=== PATIENT | male | born 1995 | race Two or more races ===

== ENCOUNTER 2019-08-27 02:48 | Emergency (ER) | payer MEDICAID ==
[~2019-08-27] VITALS: Ht 167.6 cm; Wt 81.8 kg
[2019-08-27 02:51] VITALS: BP 116/84
[2019-08-27] MEDS ORDERED: IBUP-1984 PO (03:05)
[2019-08-27] MEDS ORDERED: oxyCODONE SR 10mg (sust. release) tab PO ONE (03:05)
[2019-08-27] MEDS ORDERED: HYDR-3965 PO (03:05)
[2019-08-27] MEDS ORDERED: ketorolac trometh inj. 60 MG/2 ML VIAL IM ONE (03:05)
[2019-08-27] MEDS ORDERED: ondansetron 4mg rapidly disintigrating tab PO ONE (03:05)
== END 2019-08-27 03:14 | disposition home or self-care (01) ==
LOC: ER 02:49
DX: K08.89 Other specified disorders of teeth and supporting structures (principal); Z79.899 Other long term (current) drug therapy
CPT/HCPCS: 96372; 99283; J1885

== ENCOUNTER 2019-09-27 06:48 | Emergency (ER) | payer MEDICAID ==
[~2019-09-27] VITALS: Ht 170.2 cm; Wt 81.0 kg
[~2019-09-27 06:48] MED LIST: HYDR-3965 PO; IBUP-1984 PO
[2019-09-27 06:51] VITALS: BP 133/86
[2019-09-27] MEDS ORDERED: morphine 2 MG/ML inj. syringe IM ONE (07:25)
[2019-09-27] MEDS ORDERED: ketorolac trometh. 30mg/ml inj. IM ONE (07:25)
[2019-09-27] MEDS ORDERED: MELO15TA13 PO (07:28)
[2019-09-27] MEDS ORDERED: CLIN-142 PO (07:28)
== END 2019-09-27 08:17 | disposition home or self-care (01) ==
LOC: ER 06:48
DX: K08.89 Other specified disorders of teeth and supporting structures (principal); R42 Dizziness and giddiness; R11.0 Nausea; K13.79 Other lesions of oral mucosa; Z79.2 Long term (current) use of antibiotics; Z79.899 Other long term (current) drug therapy
CPT/HCPCS: 96372; 99284; J1885; J2270

== ENCOUNTER 2022-08-08 20:59 | Emergency (ER) | payer MEDICAID ==
[~2022-08-08] VITALS: Ht 167.6 cm; Wt 90.9 kg
[~2022-08-08 20:59] MED LIST changes: -HYDR-3965 PO; -IBUP-1984 PO; +MELO15TA13 PO
[2022-08-08] MEDS ORDERED: dexamethasone sod phosphate 10mg/ml inj PO STA (21:44)
[2022-08-08] MEDS ORDERED: albuterol 2.5 MG/3 ML nebule NEB ONE (21:45)
[2022-08-08 21:50] VITALS: BP 139/93
[2022-08-08] MEDS ORDERED: ALBU8HFA PO (22:08)
[2022-08-08] MEDS ORDERED: BECL7.3A INH (22:08)
== END 2022-08-08 22:56 | disposition home or self-care (01) ==
LOC: ER 20:59
DX: J45.909 Unspecified asthma, uncomplicated (principal); Z79.899 Other long term (current) drug therapy
CPT/HCPCS: 94640; 99283; J1100; 94760

== ENCOUNTER 2024-04-12 23:22 | Emergency (ER) | payer MEDICAID ==
[~2024-04-12] VITALS: Ht 170.2 cm; Wt 97.5 kg
[~2024-04-12 23:22] MED LIST changes: +ALBU8HFA PO; +BECL7.3A INH
[2024-04-12 23:23] VITALS: BP 127/92; PULSE 61; RESP 17; TEMP 97.8; O2SAT 97
[2024-04-13] MEDS ORDERED: CefTRIAXone 250MG IM Kit w/LIDOcaine IM ONE (00:40)
[2024-04-13] MEDS ORDERED: ALBU8HFA INH (00:43)
[2024-04-13] MEDS ORDERED: PSEU-259 PO (00:43)
[2024-04-13] MEDS ORDERED: CEPH-585 PO (00:43)
[2024-04-13] MEDS: CefTRIAXone 1000mg IM Kit (w/lidocaine diluent) IM ONE (01:20)
== END 2024-04-13 01:24 | disposition home or self-care (01) ==
LOC: ER 23:22
DX: J32.9 Chronic sinusitis, unspecified (principal); H66.91 Otitis media, unspecified, right ear; J45.909 Unspecified asthma, uncomplicated; Z90.13 Acquired absence of bilateral breasts and nipples
CPT/HCPCS: 96372; 99283; J0696